=== PATIENT | female | born 1940 | race Two or more races ===

== ENCOUNTER 2022-12-29 21:19 | Inpatient (IN) | payer OTHER ==
[~2022-12-29] VITALS: Ht 152.4 cm; Wt 54.1 kg
[2022-12-29 22:51] LABS: Alanine Aminotransferase 206 U/L (7-40); Albumin 4.6 g/dL (3.2-4.8); Alkaline Phosphatase 183 U/L (46-116); Anion Gap 5.9 (5-15); Aspartate Aminotransferase 626 U/L (13-40); BUN/Creatinine Ratio 17.8 (10.0-20.0); Blood Urea Nitrogen 26 mg/dL (9-23); Calcium 10.1 mg/dL (8.5-10.1); Carbon Dioxide 29.1 mmol/L (20-30); Chloride 106 mmol/L (98-107); Glucose 175 mg/dL (74-106); Lipase 90 U/L (12-53); Potassium 4.1 mmol/L (3.5-5.1); Sodium 141 mmol/L (136-145)
[2022-12-29 22:52] LABS: Bilirubin, Total 0.7 mg/dL (0.2-1.0); Total Protein 7.2 g/dL (5.7-8.2)
[2022-12-29 22:55] LABS: Basophils # (auto) 0 10 ^3/uL (0-0.2); Basophils % (auto) 0.2 % (0.0-2.0); Eosinophils # (auto) 0.2 10 ^3/uL (0-0.8); Hematocrit 42.2 % (36.0-46.0); Hemoglobin 14.2 g/dL (12.2-16.2); Lymphocytes # (auto) 1.7 10 ^3/uL (0.4-5.4); Lymphocytes % (auto) 10.1 % (10.0-50.0); Mean Corpuscular Hemoglobin 32.6 pg (28.0-32.0); Mean Corpuscular Hgb Conc. 33.7 g/dL (32.0-36.0); Mean Corpuscular Volume 96.9 fL (80.0-100.0); Monocytes # (auto) 1.3 10 ^3/uL (0-1.3); Monocytes % (auto) 7.7 % (0.0-12.0); Red Blood Cells 4.35 10^6/uL (4.0-5.20); Red Cell Distribution Width 12.2 % (11.8-14.3); White Blood Cell 17.2 10^3/uL (4.4-10.8)
[2022-12-29 23:02] LABS: Urine Bacteria NONE SEEN /hpf (None Seen); Urine Blood Negative /uL (Negative); Urine Clarity Clear (Clear); Urine Color Colorless (Yellow); Urine Protein, UAD 1+ (Negative); Urine Specific Gravity 1.012 (1.001-1.035); Urine Urobilinogen Normal (Negative); Urine WBC 13 /hpf (0 - 5)
[2022-12-30] MEDS ORDERED: PIPERACILLIN-TAZOB 3.375GM 100 ML IV ONE (02:45)
[2022-12-30] MEDS ORDERED: SODIUM CHLORIDE 0.9% 1,000 ML IV ONE (03:15)
[2022-12-30] MEDS ORDERED: ONDANSETRON HCL 4 MG/2 ML VIAL IV ONE (03:15)
[2022-12-30] MEDS ORDERED: DEXTROSE (50%) 50ML SYRG IV PRN (05:15)
[2022-12-30] MEDS ORDERED: ONDANSETRON HCL 4 MG/2 ML VIAL IV PRN (05:15)
[2022-12-30] MEDS: SODIUM CHLORIDE 0.9% 1,000 ML IV SCH ×2 (05:15→17:45)
[2022-12-30] MEDS: InsuLIN REG 1unit/0.01ml Soln (100units/ml) SC SCH ×3 (06:00→18:00)
[2022-12-30] MEDS: MORPHINE SULFATE INJ 2 MG/ml SYRG IV PRN ×3 (06:00→22:52)
[2022-12-30] MEDS: ACCU-CHEK COMFORT CURVE STRIP VI SCH ×3 (06:13→19:27)
[2022-12-30] MEDS ORDERED: GASTROGRAFIN 120 ML SOL ONE (09:04)
[2022-12-30] MEDS: cefTRIAXone 1GM/50ML D5W 50 ML IV SCH (11:11)
[2022-12-30] MEDS: PANTOPRAZOLE 40 MG/10 ML VIAL INJ IV SCH (11:11)
[2022-12-30] MEDS: metroNIDAZOLE 500MG/100ML 100 ML IV SCH ×2 (11:39→21:58)
[2022-12-30] MEDS ORDERED: hydrALAZINE HCL 20 MG/ML VL IV PRN (21:45)
[2022-12-30 23:00] VITALS: BP 166/72; PULSE 71; PULSE 75; RESP 14; TEMP 98.3; O2SAT 98
[2022-12-31] MEDS: ACCU-CHEK COMFORT CURVE STRIP VI SCH ×4 (00:14→18:00)
[2022-12-31 05:00] VITALS: BP 133/63; PULSE 86; RESP 14; TEMP 98; O2SAT 94
[2022-12-31] MEDS: InsuLIN REG 1unit/0.01ml Soln (100units/ml) SC SCH ×4 (06:00→18:00)
[2022-12-31] MEDS: SODIUM CHLORIDE 0.9% 1,000 ML IV SCH (06:01)
[2022-12-31] MEDS: metroNIDAZOLE 500MG/100ML 100 ML IV SCH ×2 (06:01→14:00)
[2022-12-31 08:00] VITALS: BP 128/60; PULSE 79; RESP 18; RESP 20; TEMP 98.2; O2SAT 94
[2022-12-31 09:00] VITALS: BP_SYST 116; BP_SYST 128; BP_DIAS 52; BP_DIAS 60; PULSE 68; PULSE 79; RESP 17; RESP 18; TEMP 97.5; TEMP 98.2; O2SAT 90; O2SAT 94
[2022-12-31] MEDS: cefTRIAXone 1GM/50ML D5W 50 ML IV SCH (09:01)
[2022-12-31] MEDS: PANTOPRAZOLE 40 MG/10 ML VIAL INJ IV SCH (09:18)
[2022-12-31 13:00] VITALS: BP 135/60; PULSE 81; RESP 19; TEMP 98.5; O2SAT 95
[2022-12-31 15:42] VITALS: BP 128/60; PULSE 79; RESP 18; TEMP 36.9; O2SAT 94
[2022-12-31 17:10] VITALS: BP 155/70; PULSE 69; RESP 19; TEMP 98.9; O2SAT 93
== END 2022-12-31 18:42 | disposition home or self-care (01) | DRG 392 ==
LOC: EDBD 21:19 → ER 21:19 → EDSEX 21:19 → OVERFLOW 12-30 05:10 → WEST WING 12-30 22:14
PROVIDERS: ADMIT Nurse Practitioner; ATTEND Internal Medicine Geriatric Medicine
DX: K52.9 Noninfective gastroenteritis and colitis, unspecified (principal); N17.9 Acute kidney failure, unspecified; E11.9 Type 2 diabetes mellitus without complications; R79.89 Other specified abnormal findings of blood chemistry; I10 Essential (primary) hypertension; R74.8 Abnormal levels of other serum enzymes; E03.9 Hypothyroidism, unspecified; Z80.0 Family history of malignant neoplasm of digestive organs; Z85.3 Personal history of malignant neoplasm of breast; Z98.84 Bariatric surgery status; Z82.49 Family history of ischemic heart disease and other diseases of the circulatory system; Z82.5 Family history of asthma and other chronic lower respiratory diseases; Z83.3 Family history of diabetes mellitus; Z90.10 Acquired absence of unspecified breast and nipple; Z95.5 Presence of coronary angioplasty implant and graft; I25.2 Old myocardial infarction; R74.01 Elevation of levels of liver transaminase levels
CPT/HCPCS: 36415; 74176; 74250; 80053; 81001; 82962; 83605; 83690; 83735; 85025; 87040; 87086; 93005; 96365; 96366; 96375; C9113; G0378; J0696; J1815; J2405; J2543; J3490

== ENCOUNTER 2023-04-20 20:27 | Emergency (ER) | payer OTHER ==
[~2023-04-20] VITALS: Ht 152.4 cm; Wt 57.0 kg
[2023-04-20 22:36] LABS: Basophils # (auto) 0.1 10 ^3/uL (0-0.2); Basophils % (auto) 0.5 % (0.0-2.0); Eosinophils # (auto) 0.3 10 ^3/uL (0-0.8); Eosinophils % (auto) 2.5 % (0.0-7.0); Hematocrit 42.4 % (36.0-46.0); Hemoglobin 13.9 g/dL (12.2-16.2); Lymphocytes # (auto) 3.4 10 ^3/uL (0.4-5.4); Lymphocytes % (auto) 28.7 % (10.0-50.0); Mean Corpuscular Hgb Conc. 32.8 g/dL (32.0-36.0); Mean Corpuscular Volume 97.6 fL (80.0-100.0); Monocytes # (auto) 0.9 10 ^3/uL (0-1.3); Monocytes % (auto) 7.4 % (0.0-12.0); Neutrophils # (auto) 7.2 10 ^3/uL (1.6-8.6); Neutrophils % (auto) 60.9 % (37.0-80.0); Nucleated Red Blood Cells % 0.1 %; Red Blood Cells 4.35 10^6/uL (4.0-5.20); Red Cell Distribution Width 12.9 % (11.8-14.3); White Blood Cell 11.9 10^3/uL (4.4-10.8)
[2023-04-20 22:58] LABS: Alanine Aminotransferase 16 U/L (7-40); Albumin 4.7 g/dL (3.2-4.8); Alkaline Phosphatase 93 U/L (46-116); Anion Gap 11 (5-15); Aspartate Aminotransferase 17 U/L (13-40); BUN/Creatinine Ratio 14.4 (10.0-20.0); Bilirubin, Total 0.4 mg/dL (0.2-1.0); Blood Urea Nitrogen 17 mg/dL (9-23); Carbon Dioxide 22 mmol/L (20-30); Chloride 110 mmol/L (98-107); Glucose 138 mg/dL (74-106); Potassium 4.1 mmol/L (3.5-5.1); Sodium 143 mmol/L (136-145); Total Protein 7.1 g/dL (5.7-8.2)
[2023-04-20] MEDS ORDERED: CYCLOBENZAPRINE HCL 10 MG TAB PO ONE (23:45)
[2023-04-20] MEDS ORDERED: CYCL-837 PO (23:51)
[2023-04-21] VITALS: BP 162/78; PULSE 76; RESP 20; TEMP 98.5; O2SAT 98
== END 2023-04-21 00:18 | disposition home or self-care (01) ==
LOC: ER 20:27
DX: M47.812 Spondylosis without myelopathy or radiculopathy, cervical region (principal); R13.10 Dysphagia, unspecified; I10 Essential (primary) hypertension
CPT/HCPCS: 36415; 70492; 80053; 84484; 85025

== ENCOUNTER 2024-08-09 10:00 | Emergency (ER) | payer OTHER ==
[~2024-08-09] VITALS: Ht 162.6 cm; Wt 53.6 kg
[~2024-08-09 10:00] MED LIST: CYCL-837 PO
[2024-08-09 10:46] VITALS: BP 186/85; PULSE 78; RESP 18; TEMP 98.7; O2SAT 98
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
--- NOTE | 2024-08-09 11:43 | DVH ---
EXAM: XY L SHOULDER 2+ VIEW XRAY HISTORY: FALL COMPARISON: None TECHNIQUE: 3 views of the left shoulder were performed. FINDINGS: No acute fracture or dislocation are identified about the left shoulder. There is mild left acromiocl avicular hypertrophy. There is minimal left glenohumeral osteoarthritis. No significant loss of suba cromial space. There are atherosclerotic calcifications of the aortic arch. There is an LAD stent. IMPRESSION: Degenerative changes of the left shoulder without evidence of fracture.
--- NOTE | 2024-08-09 12:09 | DVH ---
CT LS SPINE WO CONTRAST INDICATION: FALL X 5 DAYS AGO, HX OF CHRONIC LOW BACK PAIN : 84 old Female FALL X 5 DAYS AGO, HX OF CHRONIC LOW BACK PAIN EXAM DATE: 08/09/2024 11:16 AM COMPARISON: None RADIATION DOSE: CTDIvol: 17.7 mGy, DLP: 618.64 mGy*cm PROCEDURE: Utilizing the CT scanner, contiguous axial scans were obtained through the lumbar spine. C oronal and sagittal reformatted images were then generated. All CT scans at this medical facility are performed using dose modulation techniques as appropriate t o a performed exam including the following: Automated exposure control was utilized; adjustment of th e MA and/or KV according to patient size; and use of iterative reconstruction technique. 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 Degenerative disc disease throughout with disc space narrowing and vacuum discs On axial images: At T12-L1, the posterior disc margin, thecal sac, neural foramina, and facet joints are normal. At L1-2, the posterior disc margin, thecal sac, neural foramina, and facet joints are normal. At L2-3, slight narrowing of the central canal and neural foramina by combination of diffuse disc bul ge and shortened pedicles. No nerve root compression At L3-4, narrowing of the right neural foramen by shortened pedicles and bulging disc with possible r ight-sided nerve root impingement At L4-5, 4 visualization due to beam hardening artifact from internal hardware. There may be narrowi ng of the right neural foramen by osteophytes with right-sided nerve root impingement At L5-S1, slight narrowing of the neural foramina by bulging disc and osteophytes with possible left- sided nerve root impingement IMPRESSION: 1. Degenerative changes and postsurgical changes as described. 2. At L3-4 narrowing of the right neural foramen by shortened pedicles and bulging disc with possible right-sided nerve root impingement 3. At L4-5 limited visualization due to beam hardening artifact from metal hardware. Possible right- sided neural encroachment by osteophytes 4. L5-S1 narrowing of the neural foramina by bulging disc and osteophytes with possible left-sided fo raminal nerve root impingement
--- NOTE | 2024-08-09 19:05 | ECG ---
[facility] Test Date: 2024-08-09 Test Time: 10:10:32 Pat Name: MIGUEL ABEBE Department: ED Room: Gender: F Hydrologic Modeler: ERIC : 1940 Requested By: SPRING ATKINSON Order Number: [id number] Reading MD: Matthew Thomas Measurements Intervals [place] Rate: 73 P: 20 NH: 166 QRS: -20 QRSD: 102 T: 22 QT: 388 QTc: 428 Interpretive Statements Sinus rhythm Borderline left axis deviation Abnormal R-wave progression, late transition Baseline wander in lead(s) II,III,aVF Electronically Signed On 08-10-2024 13:44:33 PDT by Matthew Thomas Please click the below link to view image of tracing.
== END 2024-08-09 12:47 | disposition home or self-care (01) ==
LOC: EDBD 10:00 → ER 10:00
DX: M51.371 Other intervertebral disc degeneration, lumbosacral region with lower extremity pain only (principal); M19.012 Primary osteoarthritis, left shoulder; I12.9 Hypertensive chronic kidney disease with stage 1 through stage 4 chronic kidney disease, or unspecified chronic kidney disease; E11.22 Type 2 diabetes mellitus with diabetic chronic kidney disease; N18.9 Chronic kidney disease, unspecified; Z79.899 Other long term (current) drug therapy; Z88.8 Allergy status to other drugs, medicaments and biological substances
CPT/HCPCS: 72131; 73030; 82947; 82962; 93005

== ENCOUNTER 2024-09-11 12:32 | Emergency (ER) | payer OTHER, MEDICAID ==
[~2024-09-11] VITALS: Ht 152.4 cm; Wt 54.4 kg
--- NOTE | 2024-09-11 13:04 | ECG ---
[facility] Test Date: 2024-09-11 Test Time: 13:03:56 Pat Name: MIGUEL ABEBE Department: ER Room: Gender: F Mental Health Nurse: GP : 1940 Requested By: REINALDO HENDRIX Order Number: [id number] Reading MD: Measurements Intervals [place] Rate: 65 P: 33 RI: 153 QRS: 0 QRSD: 101 T: 40 QT: 407 QTc: 424 Interpretive Statements Sinus rhythm Borderline low voltage, extremity leads Minimal ST elevation, lateral leads Baseline wander in lead(s) I,II,III,aVL,V3,V6 Please click the below link to view image of tracing.
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
[2024-09-11 13:26] LABS: Basophils # (auto) 0 10 ^3/uL (0-0.2); Basophils % (auto) 0.4 % (0.0-2.0); Eosinophils # (auto) 0.2 10 ^3/uL (0-0.8); Hematocrit 41.3 % (36.0-46.0); Hemoglobin 13.7 g/dL (12.2-16.2); Lymphocytes # (auto) 3.1 10 ^3/uL (0.4-5.4); Mean Corpuscular Hemoglobin 31.5 pg (28.0-32.0); Mean Corpuscular Hgb Conc. 33.2 g/dL (32.0-36.0); Mean Corpuscular Volume 94.8 fL (80.0-100.0); Monocytes # (auto) 0.8 10 ^3/uL (0-1.3); Neutrophils # (auto) 7.2 10 ^3/uL (1.6-8.6); Neutrophils % (auto) 63.6 % (37.0-80.0); Platelet Count (auto) 299 10^3/uL (140-450); Red Blood Cells 4.35 10^6/uL (4.0-5.20); Red Cell Distribution Width 12.5 % (11.8-14.3); White Blood Cell 11.4 10^3/uL (4.4-10.8)
--- NOTE | 2024-09-11 13:28 | DVH ---
XY CHEST PORTABLE, HISTORY: dizziness COMPARISON: None None TECHNICAL DATA: 1 view of the chest was obtained. FINDINGS: Lines and tubes: None Cardiomediastinal silhouette: normal Pulmonary vasculature: normal Lung expansion: normal Lung airspace: normal Lung interstitium: normal Pleura: normal Pneumothorax: no Bones: Unremarkable Other: no IMPRESSION: No acute intrathoracic abnormality.
--- NOTE | 2024-09-11 13:30 | DVH ---
EXAM: CT HEAD WITHOUT CONTRAST HISTORY: headache, post injury COMPARISON: None TECHNIQUE: Axial images of the head were obtained and reformatted in coronal and sagittal planes. All CT scans at this medical facility are performed using dose modulation techniques as appropriate t o a performed exam including the following: Automated exposure control was utilized; adjustment of th e MA and/or KV according to patient size; and use of iterative reconstruction technique. CT Dose: CTDI volume is 51 mGy. Dose-length product is 900 mGy*cm FINDINGS: There is no evidence of acute intracranial hemorrhage, mass, mass effect midline shift. There is no h ydrocephalus or extra-axial fluid collection. Pimentel-white matter differentiation is maintained. The visualized paranasal sinuses and mastoid air cells are clear. The calvarium is intact. IMPRESSION: 1. No acute intracranial process. HS:Y
[2024-09-11 13:36] VITALS: TEMP 98.7
[2024-09-11 13:36] LABS: Potassium 4.6 mmol/L (3.5-5.1); Sodium 141 mmol/L (136-145)
[2024-09-11 13:37] LABS: Anion Gap 9 (5-15); Carbon Dioxide 24 mmol/L (20-31); Chloride 108 mmol/L (98-107)
[2024-09-11 13:38] LABS: Calcium 10.3 mg/dL (8.7-10.4)
[2024-09-11 13:43] LABS: BUN/Creatinine Ratio 26.5 (10.0-20.0); Blood Urea Nitrogen 31 mg/dL (9-23); Glucose 122 mg/dL (74-106)
[2024-09-11 15:50] VITALS: PULSE 70; RESP 16; O2SAT 96
[2024-09-11 15:53] VITALS: BP 155/73; PULSE 70; RESP 16; O2SAT 96
[2024-09-11] MEDS: ACETAMINOPHEN 325 MG TAB PO ONE (15:53)
[2024-09-11] MEDS: cloNIDine HCL 0.1 MG TAB PO ONE (15:53)
[2024-09-11] MEDS: MECLIZINE HCL 25 MG TAB PO ONE (15:53)
== END 2024-09-11 16:00 | disposition home or self-care (01) ==
LOC: ER 12:36
DX: S06.0X0A Concussion without loss of consciousness, initial encounter (principal); M54.9 Dorsalgia, unspecified; I12.9 Hypertensive chronic kidney disease with stage 1 through stage 4 chronic kidney disease, or unspecified chronic kidney disease; E11.22 Type 2 diabetes mellitus with diabetic chronic kidney disease; N18.9 Chronic kidney disease, unspecified
CPT/HCPCS: 36415; 70450; 71045; 80048; 82947; 84484; 85025; 93005; 99285; J8597; 82962